=== PATIENT | male | born 1985 | race African-American/Black ===

== ENCOUNTER 2017-12-16 00:10 | Emergency (ER) | payer SELFPAY ==
[~2017-12-16] VITALS: Ht 157.5 cm; Wt 62.7 kg
[2017-12-16 03:40] VITALS: BP 128/81
== END 2017-12-16 03:40 | disposition home or self-care (01) ==
LOC: ER 00:10
DX: L72.0 Epidermal cyst (principal); F17.200 Nicotine dependence, unspecified, uncomplicated
CPT/HCPCS: 99283